=== PATIENT | female | born 1945 | race Caucasian/White ===

== ENCOUNTER 2018-02-24 13:25 | Outpatient (CLI) | payer BC, MEDICARE | END 2018-02-24 13:26 | disposition home or self-care (01) | LOC: BICMAMMO 13:25 | PROVIDERS: ATTEND Family Medicine | DX: Z12.31 Encounter for screening mammogram for malignant neoplasm of breast (principal); E11.9 Type 2 diabetes mellitus without complications | CPT/HCPCS: 77063; 77067 ==

== ENCOUNTER 2019-05-17 12:26 | Outpatient (CLI) | payer MEDICARE ==
--- NOTE | 2019-05-17 13:10 | MMO ---
Bilateral MAMMO Bilat Screen [facility]. CLINICAL HISTORY: Patient is 73 years old and is seen for screening. The patient has no family history of breast cancer. The patient has no personal history of cancer. VIEWS: The views performed were: bilateral craniocaudal with tomosynthesis; bilateral mediolateral oblique with tomosynthesis; and right exaggerated craniocaudal. FILMS COMPARED: The present examination has been compared to prior imaging studies performed at [facility] on 12/14/2013, 04/17/2015, 08/15/2016 and 02/24/2018. MAMMOGRAM FINDINGS: There are scattered fibroglandular densities. There are stable benign appearing calcifications seen in both breasts. There are no suspicious masses, suspicious calcifications, or new areas of architectural distortion. IMPRESSION: THERE IS NO MAMMOGRAPHIC EVIDENCE OF MALIGNANCY. A ROUTINE FOLLOW-UP MAMMOGRAM IN 1 YEAR IS RECOMMENDED. THE RESULTS OF THIS EXAM WERE SENT TO THE PATIENT. ACR BI-RADS Category 2 - Benign finding MAMMOGRAPHY NOTE: 1. A negative mammogram report should not delay a biopsy if a dominant of clinically suspicious mass is present. 2. Approximately 10% to 15% of breast cancers are not detected by mammography. 3. Adenosis and dense breasts may obscure an underlying neoplasm.
== END 2019-05-17 12:27 | disposition home or self-care (01) ==
LOC: BICMAMMO 12:26
PROVIDERS: ATTEND Family Medicine
DX: Z12.31 Encounter for screening mammogram for malignant neoplasm of breast (principal)
CPT/HCPCS: 77063; 77067

== ENCOUNTER 2021-01-21 14:20 | Outpatient (CLI) | payer MEDICARE ==
--- NOTE | 2021-01-21 14:47 | RAD ---
EXAM: XR Lumbar Spine 2 Or 3 View PROVIDED CLINICAL HISTORY: Lumbar radiculopathy. Chronic back pain. COMPARISON: None FINDINGS: 5 nonrib-bearing lumbar-type vertebral bodies are present. Right convex scoliosis thoracolumbar spine is present. Scattered osteophytes are seen in the lumbar spine. Intervertebral disc space narrowing is present at multiple levels. The vertebral body heights are within normal limits. No frac ture or subluxation is identified. Vascular calcifications are seen in the abdominal aorta. Surgical clip overlies the right pelvis. IMPRESSION: 1. Degenerative changes lumbar spine. 2. Right convex scoliosis thoracolumbar spine. 3. No fracture or subluxation involving the lumbar spine.
== END 2021-01-21 14:21 | disposition home or self-care (01) ==
LOC: SCSRAD 14:20
PROVIDERS: ATTEND Neurological Surgery
DX: M47.26 Other spondylosis with radiculopathy, lumbar region (principal); M41.9 Scoliosis, unspecified
CPT/HCPCS: 72100

== ENCOUNTER 2021-09-02 09:44 | Outpatient (CLI) | payer MEDICARE ==
[2021-09-02 10:42] LABS: #Basophils 0.1 10x3/uL (0.0-0.2); #Eosinphils 0.2 10x3/uL (0.0-0.5); #Monocytes 0.5 10x3/uL (0.0-1.1); #Neutrophils 3.8 10x3/uL (1.5-8.4); %Basophils 0.7 % (0.0-2.0); %Eosinophils 2.4 % (0.0-6.0); %Lymphocytes 32.4 % (18.0-47.0); %Monocytes 7.1 % (0.0-10.0); %Neutrophils 57.1 % (40.0-75.0); Hemoglobin 14.3 g/dL (12.0-15.5); Mean Corpuscular HGB CONC 32.9 g/dL (32.0-36.0); Mean Corpuscular Volume 97.3 fl (81.6-98.3); Mean Platelet Volume 9.7 fl (7.4-10.4); Platelet Count 224 10x3/uL (150-450); RBC Distribution Width 12.9 % (11.5-14.5); Red Blood Cell (RBC) Count 4.47 10x6/uL (3.90-5.03); White Blood Cell (WBC) Count 6.7 10x3/uL (3.5-10.5)
[2021-09-02 10:54] LABS: Anion Gap 13 mmol/L (10-20); BUN (Urea Nitrogen) 34 mg/dL (9.8-20.1); Calc. Creatinine Clearance 0 mL/min (70-130); Calcium 10.1 mg/dL (7.8-10.44); Carbon Dioxide 26 mmol/L (23-31); Chloride 106 mmol/L (98-107); Glucose 112 mg/dL (83-110); Potassium 3.9 mmol/L (3.5-5.1); Sodium 141 mmol/L (136-145)
[2021-09-02 21:37] LABS: SARS-CoV-2 PCR by NAA Not Detected (NotDetected)
== END 2021-09-02 09:45 | disposition home or self-care (01) ==
LOC: LABBT 09:44
PROVIDERS: ATTEND Specialist
DX: Z01.818 Encounter for other preprocedural examination (principal); C50.911 Malignant neoplasm of unspecified site of right female breast; Z20.822 Contact with and (suspected) exposure to COVID-19
CPT/HCPCS: 80048; 85025; 93005; U0003; U0005; 93010

== ENCOUNTER 2021-09-05 08:30 | Day surgery (SDC) | payer MEDICARE ==
[2021-09-04 09:38] VITALS: BMI 28.3
[2021-09-05] MEDS ORDERED: Ketorolac Tromethamine 30 MG/ML VIAL ONE (10:03)
[2021-09-05] MEDS ORDERED: Acetaminophen 500 MG TAB ONE (10:04)
[2021-09-05] MEDS ORDERED: Levofloxacin 500 mg/D5W 100 ml Premix Bag ONE (10:04)
[2021-09-05] MEDS ORDERED: Lidocaine 1% w/Epinephrine 1:100K 20 ML VIAL ONE (10:18)
[2021-09-05] MEDS ORDERED: Bupivacaine 0.25% HCL 30 ML VIAL ONE (10:18)
[2021-09-05] MEDS ORDERED: Isosulfan Blue 50 MG/5 ML VIAL ONE (10:18)
[2021-09-05] MEDS ORDERED: Fentanyl 100 MCG/2 ML VIAL ONE ×2 (10:28→12:50)
[2021-09-05] MEDS ORDERED: Famotidine/PF 20 mg/2ml Vial ONE (10:58)
[2021-09-05] MEDS ORDERED: Dexamethasone 20 MG/5 ML VIAL ONE (11:00)
[2021-09-05] MEDS ORDERED: Ondansetron PF 4 MG/2 ML Vial ONE (11:00)
[2021-09-05] MEDS ORDERED: Metoclopramide HCl 10 MG/2 ML VIAL ONE (11:00)
[2021-09-05] MEDS ORDERED: ePHEDrine 50 MG/ML VIAL ONE (11:00)
[2021-09-05] MEDS ORDERED: PHENYLEPHRINE-NS 100 MCG/ML 10 ML SYRINGE ONE (11:00)
[2021-09-05] MEDS ORDERED: PROPOFOL 200 MG/20 ML VIAL ONE (11:00)
[2021-09-05] MEDS ORDERED: diphenhydrAMINE 50 MG/ML VIAL ONE (11:00)
[2021-09-05] MEDS ORDERED: Lidocaine 1% PF 5 ML VIAL ONE (11:00)
== END 2021-09-05 14:55 | disposition home or self-care (01) ==
LOC: SDC 08:30
PROVIDERS: ATTEND Specialist
PROC: 0HBT0ZZ Excision of Right Breast, Open Approach (ICD-10-PCS; principal; 2021-09-05)
PROC: 07B50ZX Excision of Right Axillary Lymphatic, Open Approach, Diagnostic (ICD-10-PCS; 2021-09-05)
DX: C50.411 Malignant neoplasm of upper-outer quadrant of right female breast (principal); N60.91 Unspecified benign mammary dysplasia of right breast; E78.5 Hyperlipidemia, unspecified; I10 Essential (primary) hypertension; E11.9 Type 2 diabetes mellitus without complications; E03.9 Hypothyroidism, unspecified; M10.9 Gout, unspecified; K21.9 Gastro-esophageal reflux disease without esophagitis; Z17.0 Estrogen receptor positive status [ER+]; Z79.84 Long term (current) use of oral hypoglycemic drugs; Z79.899 Other long term (current) drug therapy; Z88.0 Allergy status to penicillin; Z88.1 Allergy status to other antibiotic agents; Z88.5 Allergy status to narcotic agent; Z88.7 Allergy status to serum and vaccine; Z88.8 Allergy status to other drugs, medicaments and biological substances
CPT/HCPCS: 19301; 38525; 38900; 76098; 78195; A9541; Q9968; 88307; 88341; 88342; J1100; J1200; J1885; J1956; J2405; J2704; J2765; J3010; J3490; S0020; S0028

== ENCOUNTER 2022-09-25 12:36 | Outpatient (CLI) | payer MEDICARE | END 2022-09-25 12:37 | disposition home or self-care (01) | LOC: BICMAMMO 12:36 | PROVIDERS: ATTEND Specialist | DX: Z08 Encounter for follow-up examination after completed treatment for malignant neoplasm (principal); Z85.3 Personal history of malignant neoplasm of breast | CPT/HCPCS: 77066; G0279 ==

== ENCOUNTER 2023-10-30 13:44 | Outpatient (CLI) | payer MEDICARE | END 2023-10-30 13:45 | disposition home or self-care (01) | LOC: BICMAMMO 13:44 | PROVIDERS: ATTEND Specialist | DX: Z08 Encounter for follow-up examination after completed treatment for malignant neoplasm (principal); Z85.3 Personal history of malignant neoplasm of breast | CPT/HCPCS: 77066; G0279 ==

== ENCOUNTER 2024-05-10 09:49 | Outpatient (CLI) | payer MEDICARE | END 2024-05-10 09:50 | disposition home or self-care (01) | LOC: BICCT 09:49 | PROVIDERS: ATTEND Nurse Practitioner Family | DX: R31.29 Other microscopic hematuria (principal) | CPT/HCPCS: 82565 ==

== ENCOUNTER 2024-08-22 10:16 | Outpatient (CLI) | payer MEDICARE | END 2024-08-22 10:17 | disposition home or self-care (01) | LOC: SCSRAD 10:16 | PROVIDERS: ATTEND Student in an Organized Health Care Education/Training Program | DX: R05.1 Acute cough (principal) | CPT/HCPCS: 71046 ==

== ENCOUNTER 2024-11-01 12:43 | Outpatient (CLI) | payer MEDICARE | END 2024-11-01 12:44 | disposition home or self-care (01) | LOC: BICMAMMO 12:43 | PROVIDERS: ATTEND Specialist | DX: Z12.31 Encounter for screening mammogram for malignant neoplasm of breast (principal); Z85.3 Personal history of malignant neoplasm of breast; Z98.890 Other specified postprocedural states | CPT/HCPCS: 77063; 77067 ==

== ENCOUNTER 2025-11-02 07:50 | Outpatient (CLI) | payer MEDICARE | END 2025-11-02 07:51 | disposition home or self-care (01) | LOC: BICMAMMO 07:50 | PROVIDERS: ATTEND Specialist | DX: Z12.31 Encounter for screening mammogram for malignant neoplasm of breast (principal); Z85.3 Personal history of malignant neoplasm of breast; Z98.890 Other specified postprocedural states | CPT/HCPCS: 77063; 77067 ==